=== PATIENT | female | born 1960 | race Caucasian/White ===

== ENCOUNTER → 2016-09-25 | Outpatient (CLI) | payer OTHER | LOC: FIMAGING 07:46 | PROVIDERS: ATTEND Obstetrics & Gynecology | DX: Z12.31 Encounter for screening mammogram for malignant neoplasm of breast (principal); Z85.850 Personal history of malignant neoplasm of thyroid | CPT/HCPCS: G0202 ==

== ENCOUNTER 2017-05-01 11:55 | Emergency (ER) | payer OTHER ==
[2017-05-01] MEDS ORDERED: NS 500 ML IV ONE (12:17)
--- NOTE | 2017-05-01 12:24 | CPEKG ---
Heart Rate: 72 RR Interval: 833 P-R Interval: 200 QRSD Interval: 78 QT Interval: 408 QTC Interval: 447 P [place]: 74 QRS [place]: 9 T Wave [place]: 74 EKG Severity - ABNORMAL ECG - EKG Impression: SINUS RHYTHM EKG Impression: BORDERLINE INFERIOR Q WAVES EKG Impression: CONSIDER ANTEROSEPTAL INFARCT Electronically Signed By: Javier Brandon 01-May-2017 15:25:37
[2017-05-01 12:51] LABS: PLATELET COUNT 273 10^3/uL (150-400)
[2017-05-01 13:01] LABS: CREATINE KINASE 73 IU/L (0-156); INR 1.05 (0.83-1.16); PROTIME(PATIENT) 13.9 SEC (12.0-15.0)
[2017-05-01] MEDS ORDERED: IOPAMIDOL (ISOVUE 370) 100 ML BTL IV ONE (13:01)
[2017-05-01 14:28] VITALS: O2SAT 99
--- NOTE | 2017-05-01 15:10 | EDPHY ---
H & P Time Seen by Provider: 05/01/17 12:16 HPI/ROS: HPI Chest pain. 57-year-old female by private vehicle with her . This patient reports that she has had on and off chest pain which she describes as a chest tightness across her mid and lower chest for a month now. She is currently being followed by Dr. John Vail of the Cardiology Service. She had a treadmill stress test about a week ago. She was throwing PVCs on this test. She was then sent to Dr. Vail for a stress echocardiogram. She was having this stress echocardiogram yesterday. Her aorta was noted to be dilated and the test was not completed. Dr. Vail spoke with the patient this morning and told her to come in the emergency department for further evaluation. She states that today she has had some on and off chest tightness. Otherwise she denies any significant complaint. Dr. Vail requested we get a CT angiogram of her chest to evaluate her aorta for aneurysm, dissection and pulmonary embolism. ROS: Constitutional: No fever, no chills. No weakness. Eyes: No discharge. No changes in vision. ENT: No sore throat. No nasal congestion or rhinorrhea. Respiratory: No cough. No shortness of breath. Cardiac: As above, no palpitations. Gastrointestinal: No abdominal pain, no vomiting, no diarrhea. Genitourinary: No hematuria. No dysuria or increased frequency with urination. Musculoskeletal: No back pain. No neck pain. No myalgias or arthralgias. Skin: No rashes. Neurological: No headache. No focal weakness or altered sensation. Past medical history: Anxiety. As above. Social history: Nonsmoker. Here with her . Physical Exam: General Appearance: Alert, no distress. Anxious. This patient is responding to questions appropriately and in full sentences. This patient appears well- hydrated and well-nourished. Eyes: Pupils equal and round no pallor or injection. No lid edema, erythema or injection. Respiratory: There are no retractions, lungs are clear to auscultation with good air movement bilaterally. Cardiovascular: Regular rate and rhythm. No murmur. Gastrointestinal: Abdomen is soft and nontender, no masses, bowel sounds normal. No focal tenderness at McBurney's point. No Mccall sign. Neurological: Motor sensory function is grossly intact. Cranial nerves are normal. Gait is normal. Skin: Warm and dry, no rashes. Musculoskeletal: Neck is supple and nontender. Extremities are symmetrical. All joints range without pain or impingement. Psychiatric: No agitation. No depression. Database: EKG: EKG time is 12:22 p.m.; EKG shows a narrow complex normal sinus rhythm with a ventricular rate of 72. QS waves noted in V1 and V2. The OR, QRS, QT intervals are within normal limits. There are no ST-T wave changes indicative of ischemic or injury pattern. No evidence of right heart strain. Interpreted by me. Imaging: CT angiogram of the chest: No evidence of pulmonary embolism. 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 No evidence of dissection. Otherwise a normal study. Results were discussed with staff radiologist Dr. Vitale. Procedures: Emergency department course: Vital signs reviewed. She is mildly hypertensive. Vital signs otherwise normal. EKG obtained and reviewed by myself. She was given 324 mg of chewed aspirin. She initially was resistant to CT imaging of her chest. I discussed the reasoning behind getting this study. I discussed why Dr. John Vail her manager park wanted to get this test. She consented. 2:50 p.m., I spoke with Dr. John Vail, manager park, in the emergency department regarding this patient's workup and diagnostic testing results as well as her history and disposition. Dr. Vail as cleared this patient for discharge to home. He will see the patient in his office on Thursday for a stress echocardiogram. 3:05 p.m., patient re-evaluated. She is resting comfortably at this time. Results of her CT scan as well as all of her diagnostic studies were discussed with her and her . I explained the plan for follow-up with Dr. Vail in his office for stress echocardiogram on Thursday. She will call Thursday morning for appointment time. She feels comfortable going home and understands this follow-up plan. She has no chest pain or shortness of breath at this time. She feels relieved after I discussed the results of her diagnostic workup with her and her . Return to emergency department precautions were reviewed with her thoroughly. All of her questions were answered. She was discharged in good condition. Differential Diagnosis: The differential diagnosis on this patient includes but is not limited to anxiety, noncardiac chest pain. Aortic dissection, aortic aneurysm, acute coronary syndrome, pulmonary embolism, pericarditis, myocarditis, pneumonia, pneumothorax unlikely. This represents a partial list of diagnoses considered. These considerations are based on history, physical exam, past history, reassessment and diagnostic testing. Smoking Status: Never smoked Constitutional: Initial Vital Signs Temperature (C) 36.7 C 05/01/17 12:00 Heart Rate 77 05/01/17 12:00 Respiratory Rate 18 05/01/17 12:00 Blood Pressure 148/87 H 05/01/17 12:00 O2 Sat (%) 99 05/01/17 12:00 O2 Delivery Mode Room Air Allergies/Adverse Reactions: No Known Allergies Allergy (Unverified 05/01/17 12:05) Home Medications: Medication Instructions Recorded [place] Thyroid 05/01/17 Medical Decision Making - Data Points Laboratory Results: Laboratory Results 05/01/17 12:34 05/01/17 12:34 Medications Given: Discontinued Medications Sodium Chloride (Ns) 500 mls @ 1,000 mls/hr IV EDNOW ONE PRN Reason: Protocol Stop: 05/01/17 12:46 Last Admin: 05/01/17 13:01 Dose: 500 mls Departure - Departure Disposition: Home, Routine, Self-Care Clinical Impression: Chest pain Condition: Good Instructions: Chest Pain (ED) Additional Instructions: Read and follow provided instructions. Follow-up with your manager park, Dr. John Vail, on Thursday as discussed for a stress echocardiogram. Call his office at 9:00 a.m. in the morning for appointment time. He is expecting to see you then. Return to the emergency department for worsening or persistent chest pain, change in her chest pain, shortness of breath or other serious concerns. No strenuous exercise or activity until cleared by Dr. Vail. Referrals: Dawood Vail MD [Medical Doctor] - As per Instructions
[2017-05-01 15:23] VITALS: BP 160/80; PULSE 88; RESP 20; TEMP 97.2
== END 2017-05-01 15:23 | disposition home or self-care (01) ==
DX: R07.9 Chest pain, unspecified (principal); E86.9 Volume depletion, unspecified
CPT/HCPCS: Q9967